=== PATIENT | female | born 1980 | race Asian ===

== ENCOUNTER 2018-05-04 07:40 | Inpatient (IN) | payer OTHER ==
[2018-05-04] VITALS (19 sets, daily range): BP systolic 106–154; BP diastolic 59–89; PULSE 79–104; TEMP 98.1–98.5
[~2018-05-04] VITALS: Ht 149.9 cm; Wt 83.2 kg
[2018-05-04] MEDS ORDERED: CONCEPT DHA1 CAP PO (08:31)
[2018-05-04] MEDS ORDERED: OMEGA-3 1000 MG1 CAP PO (08:32)
[2018-05-04 08:44] LABS: BASO % 0.1 % (0.0-2.0); EOS # 0.1 (0.0-0.7); EOS % 1.1 % (0-4.0); GRAN # 4.9 (1.4-6.5); GRAN % 68.6 % (42.2-75.2); HEMOGLOBIN 12.1 g/dl (12.5-16.0); LYMPH # 1.5 (1.2-3.4); MEAN CELL VOLUME 90 fl (80.0-100.0); MEAN CORPUSCULAR HEMOGLOBIN 30 pg (27.0-31.0); MEAN CORPUSCULAR HGB CONC 34 g/dl (33.0-37.0); MEAN PLATELET VOLUME 13.9 fl (7.4-10.4); MONO # 0.6 (0.1-0.6); MONO % 8.5 % (1.7-9.3); PLATELET COUNT 112 K/mm3 (130-400); RED BLOOD COUNT 4.03 M/mm3 (4.10-5.30); REDCELL DISTRIBUTION WIDTH-CV 13.5 % (11.5-14.5)
[2018-05-04 08:48] LABS: HEMATOCRIT 36.1 % (37.0-47.0)
--- NOTE | 2018-05-04 08:55 | NUR ---
Patient ambulatory to room 209 with spouse and friend, changed into clean gown, FHR/TOCO monitors placed. Patient denies any contractions/leaking of fluid/vaginal bleeding. Assessment done and consents gone over and signed. 0820: IV started in left hand, one lab drawn and lab called to draw blood,LR infusing. Plan of care discussed and patient/spouse verbalizes understanding.
--- NOTE | 2018-05-04 15:40 | NUR ---
Patient assisted to edge of bed to dangle feet, patient ambulates to bathroom with standby assist. Contreras catheter removed and patient tolerates well. Pericare done, new gown/pads on. Patient ambulates the halls and has no needs at this time.
[2018-05-05 01:08] VITALS: BP 116/62; PULSE 70; TEMP 98
[2018-05-05 07:00] VITALS: BP 125/75; PULSE 109; TEMP 98.3
[2018-05-05 08:36] LABS: BASO % 0.1 % (0.0-2.0); EOS # 0.2 (0.0-0.7); GRAN # 6.2 (1.4-6.5); GRAN % 73.7 % (42.2-75.2); HEMOGLOBIN 11.1 g/dl (12.5-16.0); LYMPH # 1.1 (1.2-3.4); LYMPH % 13.3 % (20.0-51.0); MEAN CELL VOLUME 91 fl (80.0-100.0); MEAN CORPUSCULAR HEMOGLOBIN 30 pg (27.0-31.0); MEAN CORPUSCULAR HGB CONC 33 g/dl (33.0-37.0); MEAN PLATELET VOLUME 13.8 fl (7.4-10.4); MONO # 0.9 (0.1-0.6); MONO % 10.4 % (1.7-9.3); PLATELET COUNT 115 K/mm3 (130-400); RED BLOOD COUNT 3.68 M/mm3 (4.10-5.30)
[2018-05-05 08:40] LABS: HEMATOCRIT 33.4 % (37.0-47.0)
[2018-05-05 23:00] VITALS: BP 118/78; PULSE 90; TEMP 98.1
--- NOTE | 2018-05-06 08:00 | NUR ---
Rests in bed, alert. Denies any needs at this time. Baby brought to patient to feed.
[2018-05-06] MEDS ORDERED: IBU600 MG PO (08:57)
[2018-05-06] MEDS ORDERED: PERCOCET 325 MG1 TA2 PO (08:57)
[2018-05-06 09:00] VITALS: BP 111/76; PULSE 98; TEMP 97.6
--- NOTE | 2018-05-06 09:00 | NUR ---
Rests in bed, alert. sap treasury consultant here for visit.
--- NOTE | 2018-05-06 09:10 | NUR ---
Initial visit; Parents thanked Customer Engineer for offering congratulations and Blessings for the of their daughter. Customer Engineer thanked them for choosing [facility].
--- NOTE | 2018-05-06 10:00 | NUR ---
1015 Percocet 5/325 mg. p.o. two given per request and as ordered.
--- NOTE | 2018-05-06 11:15 | NUR ---
Rests in bed, alert. Ibuprofen 600 mg p.o. given as ordered. Denies any other needs at this time.
[2018-05-06 20:20] VITALS: BP 122/75; PULSE 94; TEMP 98.3
[2018-05-07 07:05] VITALS: BP 116/61; PULSE 91; TEMP 97.9
== END 2018-05-07 13:35 | disposition home or self-care (01) | DRG 788 ==
LOC: LDRO 07:40 → OB 07:47
PROVIDERS: ADMIT Obstetrics & Gynecology
PROC: 10D00Z1 Extraction of Products of Conception, Low, Open Approach (ICD-10-PCS; principal; 2018-05-04)
PROC: 10D07Z6 Extraction of Products of Conception, Vacuum, Via Natural or Artificial Opening (ICD-10-PCS; 2018-05-04)
DX: O34.211 Maternal care for low transverse scar from previous cesarean delivery (principal); O14.04 Mild to moderate pre-eclampsia, complicating childbirth; Z3A.39 39 weeks gestation of pregnancy; Z37.0 Single live birth; O99.214 Obesity complicating childbirth; Z23 Encounter for immunization; O99.62 Diseases of the digestive system complicating childbirth; K66.0 Peritoneal adhesions (postprocedural) (postinfection); O69.81X0 Labor and delivery complicated by cord around neck, without compression, not applicable or unspecified
CPT/HCPCS: J0690; J1885; J2175; J2370; J2405; J3010; J7120

== ENCOUNTER 2018-07-28 18:24 | Emergency (ER) | payer OTHER ==
[~2018-07-28] VITALS: Ht 154 cm; Wt 83.6 kg
[~2018-07-28 18:24] MED LIST: CONCEPT DHA1 CAP PO; IBU600 MG PO; OMEGA-3 1000 MG1 CAP PO; PERCOCET 325 MG1 TA2 PO
[2018-07-28 18:32] VITALS: BP 134/80; TEMP 99.5
[2018-07-28 19:06] LABS: STREP SCREEN POSITIVE
[2018-07-28] MEDS ORDERED: AMOXICILLIN 50500 MG PO (19:24)
[2018-07-28 19:55] VITALS: PULSE 94
== END 2018-07-28 19:55 | disposition home or self-care (01) ==
LOC: COL.ER 18:24
PROVIDERS: Emergency Medicine
DX: J02.0 Streptococcal pharyngitis (principal)

== ENCOUNTER 2020-08-03 00:59 | Inpatient (IN) | payer OTHER, MEDICAID ==
[~2020-08-03] VITALS: Ht 162.6 cm; Wt 78.6 kg
[2020-08-03] VITALS (19 sets, daily range): BP systolic 94–122; BP diastolic 51–76; PULSE 68–98; TEMP 97.6–98.6
[~2020-08-03 00:59] MED LIST changes: +AMOXICILLIN 50500 MG PO
[2020-08-03 06:56] LABS: BASO % 0.3 % (0.0-2.0); EOS # 0.1 (0.0-0.7); EOS % 1.1 % (0-4.0); GRAN # 3.8 (1.4-6.5); GRAN % 60.5 % (42.2-75.2); HEMOGLOBIN 11.9 g/dl (12.5-16.0); LYMPH # 1.8 (1.2-3.4); LYMPH % 28.1 % (20.0-51.0); MEAN CELL VOLUME 89 fl (80.0-100.0); MEAN CORPUSCULAR HEMOGLOBIN 30 pg (27.0-31.0); MEAN CORPUSCULAR HGB CONC 34 g/dl (33.0-37.0); MEAN PLATELET VOLUME 13.6 fl (7.4-10.4); MONO # 0.6 (0.1-0.6); MONO % 9.5 % (1.7-9.3); PLATELET COUNT 133 K/mm3 (130-400); RED BLOOD COUNT 3.98 M/mm3 (4.10-5.30); REDCELL DISTRIBUTION WIDTH-CV 13.2 % (11.5-14.5)
[2020-08-03 06:57] LABS: HEMATOCRIT 35.5 % (37.0-47.0)
--- NOTE | 2020-08-03 11:15 | NUR ---
Assumed care of patient. Rests in bed, alert. Visits with company. Denies any needs or discomfort at this time.
--- NOTE | 2020-08-03 12:45 | NUR ---
Rests in room, alert. Patients mother visiting.
--- NOTE | 2020-08-03 15:00 | NUR ---
Rests in bed, visits with family. Ibuprofen 600 mg given as ordered.
--- NOTE | 2020-08-03 16:30 | NUR ---
Ambulates to the bathroom. Contreras catheter out. Pericare given.
[2020-08-04 00:25] VITALS: BP 98/58; PULSE 85; TEMP 98.1
[2020-08-04 05:00] VITALS: BP 98/53; PULSE 91; TEMP 98.1
[2020-08-04 07:03] LABS: HEMOGLOBIN 10.2 g/dl (12.5-16.0)
[2020-08-04 07:04] LABS: HEMATOCRIT 30.9 % (37.0-47.0)
[2020-08-04 08:00] VITALS: BP 103/66; PULSE 88; TEMP 97.9
--- NOTE | 2020-08-04 09:14 | NUR ---
Initial visit; Parents thanked Electrical Fitter for offering congratulations and God's blessings for the of their son. Electrical Fitter thanked family for choosing [facility].
[2020-08-04 17:15] VITALS: BP 107/61; PULSE 91; TEMP 97.8
[2020-08-04 20:14] VITALS: BP 95/48; PULSE 92; TEMP 98.6
[2020-08-04] MEDS ORDERED: MOTRIN 600600 MG/TAB PO (23:11)
[2020-08-04] MEDS ORDERED: PERCOCET 325 MG1 TA2 PO (23:12)
[2020-08-05 08:30] VITALS: BP 101/52; PULSE 85; TEMP 98.1
[2020-08-05 17:00] VITALS: BP 95/50; PULSE 95; TEMP 98.3
[2020-08-05 19:50] VITALS: BP 112/61; PULSE 89; TEMP 98.2
[2020-08-06 08:11] VITALS: BP 109/63; PULSE 86; TEMP 98.3
== END 2020-08-06 14:45 | disposition home or self-care (01) | DRG 788 ==
LOC: OB 00:59
PROVIDERS: ADMIT Obstetrics & Gynecology
PROC: 10D00Z1 Extraction of Products of Conception, Low, Open Approach (ICD-10-PCS; principal; 2020-08-03)
DX: O34.211 Maternal care for low transverse scar from previous cesarean delivery (principal); Z3A.39 39 weeks gestation of pregnancy; Z37.0 Single live birth; O24.429 Gestational diabetes mellitus in childbirth, unspecified control
CPT/HCPCS: J0690; J1100; J1885; J2405; J2590; J2765; J7120